=== PATIENT | female | born 1965 | race Caucasian/White ===

== ENCOUNTER → 2016-12-06 | Outpatient (CLI) | payer BC ==
[~2016-12-06] MED LIST: CARAFATE 1GM1 G PO; EFFEXOR-XR150 MG PO; FASTIN30 MG PO; FEROSUL325 MG PO; FERREX; MULTIPLE VITAMI1 TA7 PO; NKA; NO HOME MEDICATIONS; NORCO 325 MG-7.1 TAB PO; PEPCID 20MG TAB20 MG PO; PHENERGAN 25 TA25 MG PO; PHENERGAN25 MG RC; PHENTERMINE15 MG PO; PRILOSEC 20MG20 MG PO; TOPAMAX 25MG25 M1; XANAX .25M0.25 MG/TA PO; ZOFRAN 4MG T4 MG/TAB PO
== END ==
LOC: MC.RAD 13:40
DX: Z12.31 Encounter for screening mammogram for malignant neoplasm of breast (principal)

== ENCOUNTER → 2017-12-18 | Outpatient (CLI) | payer BC | LOC: COL.RAD 09:29 | DX: R10.9 Unspecified abdominal pain (principal) ==

== ENCOUNTER → 2018-02-22 | Outpatient (CLI) | payer BC | LOC: MC.RAD 13:47 | DX: Z12.31 Encounter for screening mammogram for malignant neoplasm of breast (principal) ==

== ENCOUNTER → 2020-08-12 | Outpatient (CLI) | payer BC | LOC: MC.RAD 07-22 07:45 | DX: Z12.31 Encounter for screening mammogram for malignant neoplasm of breast (principal) ==

== ENCOUNTER → 2021-11-23 | Outpatient (CLI) | payer BC | LOC: COL.RAD 08:31 | DX: N95.0 Postmenopausal bleeding (principal); R93.89 Abnormal findings on diagnostic imaging of other specified body structures ==